=== PATIENT | male | born 1970 | race African-American/Black ===

== ENCOUNTER 2018-04-30 08:51 | Inpatient (IN) | payer OTHER ==
[~2018-04-30] VITALS: Ht 185.4 cm; Wt 117.3 kg
[2018-04-30] MEDS ORDERED: SODIUM CHLORIDE 0.9% 1,000 ML IV ONE (09:10)
[2018-04-30 09:25] LABS: Basophils # (auto) 0.1 uL; Basophils % (auto) 0.7 % (0.0-2.0); Eosinophils # (auto) 0.2 uL; Eosinophils % (auto) 2.1 % (0.0-7.0); Hematocrit 43.2 % (41.0-53.0); Hemoglobin 14.5 g/dL (13.5-17.5); Lymphocytes # (auto) 1.9 uL; Lymphocytes % (auto) 26.8 % (10.0-50.0); Mean Corpuscular Hemoglobin 31.6 pg (28.0-32.0); Mean Corpuscular Hgb Conc. 33.5 g/dL (32.0-36.0); Mean Corpuscular Volume 94.4 fL (80.0-100.0); Monocytes # (auto) 0.4 uL; Monocytes % (auto) 5.5 % (0.0-12.0); Neutrophils # (auto) 4.6 uL; Neutrophils % (auto) 64.9 % (37.0-80.0); Nucleated Red Blood Cells % 0.1 %; Platelet Count (auto) 257 10^3/uL (140-450); Red Blood Cells 4.57 10^6/uL (4.5-5.90); Red Cell Distribution Width 13.3 % (11.8-14.3); White Blood Cell 7.1 10^3/uL (4.4-10.8)
[2018-04-30 09:53] LABS: Albumin 3.8 g/dL (3.4-5.0); BUN/Creatinine Ratio 11.8; Calcium 8.3 mg/dL (8.5-10.1); Potassium 3.7 mmol/L (3.5-5.1)
[2018-04-30 09:56] LABS: Bilirubin, Total 0.7 mg/dL (0.2-1.0); Total Protein 8.1 g/dL (6.4-8.2)
[2018-04-30] MEDS ORDERED: metroNIDAZOLE 500MG/100ML 100 ML IV ONE (10:45)
[2018-04-30 10:49] LABS: Urine Bacteria NONE SEEN /hpf (None Seen); Urine Blood Negative /uL (Negative); Urine Specific Gravity 1.018 (1.001-1.035); Urine WBC 4 /hpf (0 - 3)
[2018-04-30] MEDS ORDERED: PANTOPRAZOLE 40 MG/10 ML VIAL IV ONE (11:15)
[2018-04-30] MEDS ORDERED: MORPHINE SULFATE 8mg/ml INJ SDV IV PRN (11:15)
[2018-04-30] MEDS ORDERED: TEMAZEPAM 15 MG CAP PO PRN (11:15)
[2018-04-30] MEDS ORDERED: MORPHINE SULF(PF) 0.5MG/ML 10ML VIAL IV PRN (11:15)
[2018-04-30] MEDS ORDERED: NITROGLYCERIN 0.4 MG SL TAB SL PRN (11:15)
[2018-04-30] MEDS ORDERED: LORazepam 0.5 MG TAB PO PRN (11:15)
[2018-04-30] MEDS ORDERED: PROMETHAZINE HCL 25 MG/ML 1ML IV PRN (11:15)
[2018-04-30] MEDS ORDERED: HYDROcodone-ACET 5/325MG TAB PO PRN (11:15)
[2018-04-30] MEDS ORDERED: PIPERACILLIN-TAZOB 3.375GM 100 ML IV ONE (12:15)
[2018-04-30] MEDS: SODIUM CHLORIDE 0.9% 1,000 ML IV SCH ×3 (12:41→22:07)
[2018-04-30 13:42] LABS: Hematocrit 45.5 % (41.0-53.0)
[2018-04-30 18:31] LABS: Hematocrit 43.1 % (41.0-53.0); Hemoglobin 14.4 g/dL (13.5-17.5)
[2018-04-30] MEDS ORDERED: LISI10TA6 PO (19:16)
[2018-04-30] MEDS ORDERED: OME20T PO (19:16)
[2018-04-30 20:00] VITALS: BP 145/89
[2018-04-30 22:00] VITALS: BP 145/89
[2018-04-30] MEDS: metroNIDAZOLE 500MG/100ML 100 ML IV SCH ×2 (22:07→22:40)
[2018-05-01] MEDS: PIPERACILLIN-TAZOB 3.375GM 100 ML IV SCH ×3 (00:07→12:47)
[2018-05-01 01:48] LABS: Hematocrit 40.7 % (41.0-53.0); Hemoglobin 13.8 g/dL (13.5-17.5)
[2018-05-01] MEDS: metroNIDAZOLE 500MG/100ML 100 ML IV SCH ×4 (05:00→22:41)
[2018-05-01 05:35] VITALS: BP_SYST 126; BP_SYST 139; BP_DIAS 84; BP_DIAS 94
[2018-05-01 06:19] LABS: Basophils # (auto) 0.1 uL; Basophils % (auto) 0.8 % (0.0-2.0); Eosinophils # (auto) 0.2 uL; Eosinophils % (auto) 2.5 % (0.0-7.0); Hematocrit 40.9 % (41.0-53.0); Hemoglobin 14.1 g/dL (13.5-17.5); Lymphocytes # (auto) 1.8 uL; Lymphocytes % (auto) 22.7 % (10.0-50.0); Mean Corpuscular Hemoglobin 31.8 pg (28.0-32.0); Mean Corpuscular Hgb Conc. 34.3 g/dL (32.0-36.0); Mean Corpuscular Volume 92.6 fL (80.0-100.0); Monocytes # (auto) 0.5 uL; Monocytes % (auto) 5.8 % (0.0-12.0); Neutrophils # (auto) 5.4 uL; Neutrophils % (auto) 68.2 % (37.0-80.0); Platelet Count (auto) 270 10^3/uL (140-450); Red Blood Cells 4.42 10^6/uL (4.5-5.90); Red Cell Distribution Width 13.4 % (11.8-14.3); White Blood Cell 7.9 10^3/uL (4.4-10.8)
[2018-05-01 09:00] VITALS: BP 153/92
[2018-05-01] MEDS: PANTOPRAZOLE 40 MG/10 ML VIAL IV SCH (11:06)
[2018-05-01 13:00] VITALS: BP 142/90
[2018-05-01] MEDS: ACETAMINOPHEN 500 MG TAB PO PRN (13:57)
[2018-05-01 17:00] VITALS: BP 140/84
[2018-05-01] MEDS: SODIUM CHLORIDE 0.9% 1,000 ML IV SCH ×2 (17:03→22:46)
[2018-05-01 20:00] VITALS: BP 158/95
[2018-05-01 22:24] VITALS: BP 158/95
[2018-05-02 04:35] VITALS: BP 130/75
[2018-05-02] MEDS: metroNIDAZOLE 500MG/100ML 100 ML IV SCH ×4 (04:54→23:08)
[2018-05-02 06:38] LABS: Basophils # (auto) 0.1 uL; Basophils % (auto) 0.8 % (0.0-2.0); Eosinophils # (auto) 0.2 uL; Eosinophils % (auto) 3.4 % (0.0-7.0); Hematocrit 42.4 % (41.0-53.0); Hemoglobin 14.4 g/dL (13.5-17.5); Lymphocytes # (auto) 1.7 uL; Lymphocytes % (auto) 24.9 % (10.0-50.0); Mean Corpuscular Hemoglobin 31.9 pg (28.0-32.0); Mean Corpuscular Hgb Conc. 34.1 g/dL (32.0-36.0); Mean Corpuscular Volume 93.7 fL (80.0-100.0); Monocytes # (auto) 0.4 uL; Neutrophils # (auto) 4.5 uL; Neutrophils % (auto) 64.9 % (37.0-80.0); Platelet Count (auto) 263 10^3/uL (140-450); Red Blood Cells 4.52 10^6/uL (4.5-5.90); Red Cell Distribution Width 13.6 % (11.8-14.3); White Blood Cell 6.9 10^3/uL (4.4-10.8)
[2018-05-02 07:14] LABS: BUN/Creatinine Ratio 13.9; Calcium 8.2 mg/dL (8.5-10.1); Potassium 3.3 mmol/L (3.5-5.1)
[2018-05-02 09:00] VITALS: BP 131/76
[2018-05-02] MEDS: PANTOPRAZOLE 40 MG/10 ML VIAL IV SCH (10:58)
[2018-05-02] MEDS ORDERED: GOLYTELY 4L KIT PO ONE (12:00)
[2018-05-02] MEDS: ACETAMINOPHEN 500 MG TAB PO PRN (12:16)
[2018-05-02 13:00] VITALS: BP 148/92
[2018-05-02] MEDS: SODIUM CHLORIDE 0.9% 1,000 ML IV SCH ×2 (13:03→23:03)
[2018-05-02 17:00] VITALS: BP 133/86
[2018-05-02 20:00] VITALS: BP 146/94
[2018-05-02 22:00] VITALS: BP 140/96
[2018-05-03] MEDS: SODIUM CHLORIDE 0.9% 1,000 ML IV SCH ×2 (03:57→19:03)
[2018-05-03] MEDS ORDERED: GOLYTELY 4L KIT PO ONE (04:00)
[2018-05-03 05:00] VITALS: BP 157/94
[2018-05-03] MEDS: metroNIDAZOLE 500MG/100ML 100 ML IV SCH ×4 (05:20→23:14)
[2018-05-03 05:59] LABS: Basophils # (auto) 0.1 uL; Basophils % (auto) 0.9 % (0.0-2.0); Eosinophils # (auto) 0.2 uL; Eosinophils % (auto) 2.4 % (0.0-7.0); Hematocrit 44.8 % (41.0-53.0); Hemoglobin 15.3 g/dL (13.5-17.5); Lymphocytes # (auto) 1.8 uL; Lymphocytes % (auto) 19.8 % (10.0-50.0); Mean Corpuscular Hemoglobin 32.1 pg (28.0-32.0); Mean Corpuscular Hgb Conc. 34.2 g/dL (32.0-36.0); Monocytes # (auto) 0.5 uL; Monocytes % (auto) 5.7 % (0.0-12.0); Neutrophils # (auto) 6.4 uL; Neutrophils % (auto) 71.2 % (37.0-80.0); Platelet Count (auto) 271 10^3/uL (140-450); Red Blood Cells 4.77 10^6/uL (4.5-5.90); Red Cell Distribution Width 13.3 % (11.8-14.3)
[2018-05-03 06:16] LABS: BUN/Creatinine Ratio 8.6; Calcium 8.4 mg/dL (8.5-10.1); Potassium 3.3 mmol/L (3.5-5.1)
[2018-05-03] MEDS ORDERED: D5W/SOD CHL 0.45%/KCL 40MEQ 1,000 ML IV ONE (07:45)
[2018-05-03] MEDS ORDERED: SODIUM CHLORIDE LOCK 10 ML ONE (08:20)
[2018-05-03] MEDS ORDERED: diphenhdrAMINE HCL 50 MG/1 ML VL ONE (08:21)
[2018-05-03 08:57] VITALS: BP 153/98
[2018-05-03 09:21] LABS: INR 1.03 (0.9-1.15); Partial Thromboplastin Time 28.2 sec (23.78-33.04)
[2018-05-03] MEDS: PANTOPRAZOLE 40 MG/10 ML VIAL IV SCH (10:13)
[2018-05-03] MEDS: fentaNYL CITRATE 100 MCG/2 ML VL ONE ×2 (11:58→12:05)
[2018-05-03] MEDS: MIDAZOLAM HCL 5 MG/ML-1ML VIAL ONE ×2 (11:58→12:05)
[2018-05-03] MEDS: ACETAMINOPHEN 500 MG TAB PO PRN (16:12)
[2018-05-03 17:00] VITALS: BP 157/92
[2018-05-03 21:52] VITALS: BP 135/74
[2018-05-04 05:15] VITALS: BP 140/68
[2018-05-04] MEDS: metroNIDAZOLE 500MG/100ML 100 ML IV SCH (05:22)
[2018-05-04] MEDS: SODIUM CHLORIDE 0.9% 1,000 ML IV SCH (05:22)
[2018-05-04 06:40] LABS: Basophils # (auto) 0 uL; Basophils % (auto) 0.5 % (0.0-2.0); Eosinophils # (auto) 0.2 uL; Eosinophils % (auto) 2.1 % (0.0-7.0); Hemoglobin 14.5 g/dL (13.5-17.5); Lymphocytes # (auto) 1.5 uL; Lymphocytes % (auto) 17.8 % (10.0-50.0); Mean Corpuscular Hemoglobin 32.3 pg (28.0-32.0); Mean Corpuscular Hgb Conc. 34.6 g/dL (32.0-36.0); Mean Corpuscular Volume 93.3 fL (80.0-100.0); Monocytes # (auto) 0.5 uL; Monocytes % (auto) 5.9 % (0.0-12.0); Neutrophils # (auto) 6.2 uL; Neutrophils % (auto) 73.7 % (37.0-80.0); Platelet Count (auto) 258 10^3/uL (140-450); Red Cell Distribution Width 13.5 % (11.8-14.3); White Blood Cell 8.5 10^3/uL (4.4-10.8)
[2018-05-04 06:53] LABS: BUN/Creatinine Ratio 14.9; Calcium 8.7 mg/dL (8.5-10.1); Potassium 3.7 mmol/L (3.5-5.1)
[2018-05-04] MEDS: PANTOPRAZOLE 40 MG/10 ML VIAL IV SCH (10:01)
[2018-05-04 11:48] VITALS: BP 150/96
== END 2018-05-04 11:05 | disposition home or self-care (01) | DRG 373 ==
LOC: ER 08:51 → TELE 08:52 → TELE-WESTW 17:20
PROVIDERS: ADMIT Internal Medicine; ATTEND Internal Medicine
PROC: 0DJD8ZZ Inspection of Lower Intestinal Tract, Via Natural or Artificial Opening Endoscopic (ICD-10-PCS; principal; 2018-05-03 11:55)
DX: A04.72 Enterocolitis due to Clostridium difficile, not specified as recurrent (principal); E66.9 Obesity, unspecified; I10 Essential (primary) hypertension; K21.9 Gastro-esophageal reflux disease without esophagitis; K42.9 Umbilical hernia without obstruction or gangrene; K64.8 Other hemorrhoids; Z90.49 Acquired absence of other specified parts of digestive tract; Z68.34 Body mass index [BMI] 34.0-34.9, adult; Z79.899 Other long term (current) drug therapy
CPT/HCPCS: 36415; 74176; 80048; 80053; 81001; 82270; 82378; 82962; 83605; 85014; 85018; 85025; 85045; 85048; 85610; 85652; 85730; 86141; 86850; 86900; 86901; 87040; 87045; 87493; 96361; 96365; 96375; C9113; J2250; J2543; J3490

== ENCOUNTER 2020-06-04 22:55 | Emergency (ER) | payer OTHER ==
[~2020-06-04] VITALS: Ht 185.4 cm; Wt 113.4 kg
[~2020-06-04 22:55] MED LIST: LISI10TA6 PO; OME20T PO
[2020-06-05 02:53] VITALS: BP 122/82
== END 2020-06-05 02:46 | disposition home or self-care (01) ==
LOC: ER 23:07
DX: R04.0 Epistaxis (principal); I10 Essential (primary) hypertension; K21.9 Gastro-esophageal reflux disease without esophagitis; Z90.49 Acquired absence of other specified parts of digestive tract
CPT/HCPCS: 30901

== ENCOUNTER 2020-06-07 13:01 | Emergency (ER) | payer OTHER ==
[~2020-06-07] VITALS: Ht 185.4 cm; Wt 113.4 kg
[2020-06-07 13:12] VITALS: BP 116/69
== END 2020-06-07 14:08 | disposition home or self-care (01) ==
LOC: ER 13:01
DX: Z48.02 Encounter for removal of sutures (principal); K21.9 Gastro-esophageal reflux disease without esophagitis; I10 Essential (primary) hypertension; Z76.0 Encounter for issue of repeat prescription